=== PATIENT | female | born 1930 | race Caucasian/White ===

== ENCOUNTER 2017-03-23 10:57 | Inpatient (IN) | payer MEDICARE, OTHER ==
[~2017-03-23 10:57] MED LIST: ARICEPT10 MG PO; ASPIR 8181 MG PO; CALCIUM 600 +1 EAC3 PO; CERTAGEN1 EACH PO; CLARITIN PO; COLESTID 1GM TAB1 GM PO; COMBIVENT RESPIM4 GM PO; COREG 3.125M3.125 MG PO; COUMADIN 5MG TAB5 MG PO; DUONEB 2.5-0.5M1 AMP PO; ISOSORBIDE MONO30 MG PO; K-DUR20 MEQ PO; LASIX80 MG PO; LOVENOX80 MG/0.8 SQ; MELATONIN3 MG PO; METOLAZONE; NAMENDA XR14 MG PO; ROBITUSSIN DM10 ML PO; STOOL SOFTENER250 MG PO; TRAMADOL HCL50 MG PO; TYLENOL325 M1 PO; VENTOLIN (2.5 MG/3 M PO; VITAMIN B12; ZANTAC150 MG PO
[2017-03-23 13:49] LABS: BASOPHIL 0.3 % (0-2); EOSINOPHIL 0.2 % (0-7); HGB 11.1 g/dl (12.5-16.0); LYMPHOCYTE 6.2 % (15-48); MCH 33.5 pg (25.0-31.0); MCHC 31.7 g/dL (32.0-36.0); MCV 105.7 fL (78.0-100.0); MONOCYTE 7.5 % (0-12); MPV 11.7 fL (6.0-9.5); NEUTROPHIL 85.8 % (41-80); PLT 218 K/uL (150-400); RBC 3.31 M/uL (4.20-5.40); RDW 13.5 % (11.5-14.0); WBC 11.1 K/uL (4.0-10.5)
[2017-03-23 14:01] LABS: ALBUMIN 3.2 g/dL (3.4-4.8); BILIRUBIN - TOTAL 0.4 mg/dL (0.1-1.0); CREATININE 1.2 mg/dL (0.5-1.0); GLOBULIN (CALCULATION) 3.5 g/dL (2.2-4.2); POTASSIUM 3.9 mmol/L (3.5-5.1); TOTAL PROTEIN 6.7 g/dL (6.4-8.3)
[2017-03-23 14:02] LABS: TROPONIN T 0.016 ng/mL
[2017-03-23 15:23] LABS: BILIRUBIN NEGATIVE (NEGATIVE); BLOOD NEGATIVE Ery/uL (NEGATIVE); CLARITY CLEAR (CLEAR); COLOR YELLOW (YELLOW); GLUCOSE (U) NORMAL (NORMAL); KETONE (U) NEGATIVE (NEGATIVE); LEUKOCYTES NEGATIVE Leu/uL (NEGATIVE); NITRITE NEGATIVE (NEGATIVE); PROTEIN NEGATIVE (NEGATIVE); UROBILINOGEN 0.2 mg/dL (0.2-1.0)
[2017-03-24 04:22] LABS: BASOPHIL 0.1 % (0-2); EOSINOPHIL 0.1 % (0-7); HCT 34.3 % (37.0-47.0); HGB 10.9 g/dl (12.5-16.0); LYMPHOCYTE 6.4 % (15-48); MCH 33.5 pg (25.0-31.0); MCHC 31.8 g/dL (32.0-36.0); MCV 105.5 fL (78.0-100.0); MONOCYTE 0.6 % (0-12); MPV 10.8 fL (6.0-9.5); NEUTROPHIL 92.8 % (41-80); PLT 221 K/uL (150-400); RBC 3.25 M/uL (4.20-5.40); RDW 13.4 % (11.5-14.0); WBC 10.5 K/uL (4.0-10.5)
[2017-03-24 04:45] LABS: CREATININE 1.2 mg/dL (0.5-1.0); MAGNESIUM 2.39 mg/dL (1.40-2.10); POTASSIUM 3.9 mmol/L (3.5-5.1)
[2017-03-25 04:13] LABS: HCT 32.1 % (37.0-47.0); HGB 10.1 g/dl (12.5-16.0); MCH 33.1 pg (25.0-31.0); MCHC 31.5 g/dL (32.0-36.0); MCV 105.2 fL (78.0-100.0); MPV 10.7 fL (6.0-9.5); RBC 3.05 M/uL (4.20-5.40); RDW 13.3 % (11.5-14.0)
[2017-03-25 04:38] LABS: CREATININE 1.3 mg/dL (0.5-1.0)
[2017-03-25] MEDS ORDERED: TYLENOL ARTHRI650 MG PO (10:35)
[2017-03-25] MEDS ORDERED: ACETAMINOPHEN500 M1 PO (10:36)
[2017-03-25] MEDS ORDERED: ALLOPURINOL300 MG PO (10:36)
[2017-03-25] MEDS ORDERED: GERI-HYDROLAC222 M1 TOP (10:37)
[2017-03-25] MEDS ORDERED: B12 FOLATE (10:38)
[2017-03-25] MEDS ORDERED: CALMOSEPTINE OI71 GM TOP (10:39)
[2017-03-25] MEDS ORDERED: BENGAY GREASELE57 GM TOP (10:39)
[2017-03-25] MEDS ORDERED: NYSTATIN 30GM C30 GM TOP (10:40)
[2017-03-25] MEDS ORDERED: TEMOVATE 0.05%45 GM TOP (10:40)
[2017-03-25] MEDS ORDERED: SLOW RELEASE47.5 MG PO (10:41)
[2017-03-25] MEDS ORDERED: VITAMIN B-121000 MC1 PO (10:41)
[2017-03-25] MEDS ORDERED: MAGNESIUM OXID420 MG PO (10:42)
[2017-03-25] MEDS ORDERED: CLARITIN10 MG PO (10:42)
[2017-03-25] MEDS ORDERED: ZAROXOLYN2.5 MG PO (10:43)
[2017-03-25] MEDS ORDERED: VIBRAMYCIN100 MG PO (10:43)
[2017-03-25] MEDS ORDERED: MELATONIN3 MG PO (10:43)
[2017-03-25] MEDS ORDERED: LEVAQUIN750 MG PO (10:44)
--- NOTE | 2017-03-25 11:57 | NUR ---
REPORT CALLED TO DMITRIY RIVERA AT [facility], EMS CALLED TO TRANSPORT PT BACK TO [facility]
--- NOTE | 2017-03-25 12:45 | NUR ---
pt transported back to [facility] at this time
== END 2017-03-25 12:45 | DRG 291 ==
LOC: FER 10:57 → FTCU 15:10 → FICU 15:10
PROVIDERS: Emergency Medicine; Internal Medicine; ADMIT Internal Medicine
DX: I50.33 Acute on chronic diastolic (congestive) heart failure (principal); J18.9 Pneumonia, unspecified organism; J96.21 Acute and chronic respiratory failure with hypoxia; J96.22 Acute and chronic respiratory failure with hypercapnia; N39.0 Urinary tract infection, site not specified; J44.0 Chronic obstructive pulmonary disease with (acute) lower respiratory infection; J44.1 Chronic obstructive pulmonary disease with (acute) exacerbation; J44.9 Chronic obstructive pulmonary disease, unspecified; F03.90 Unspecified dementia, unspecified severity, without behavioral disturbance, psychotic disturbance, mood disturbance, and anxiety; M19.90 Unspecified osteoarthritis, unspecified site; G89.29 Other chronic pain; M54.9 Dorsalgia, unspecified; Z96.653 Presence of artificial knee joint, bilateral; Z88.5 Allergy status to narcotic agent; Z88.0 Allergy status to penicillin; Z88.1 Allergy status to other antibiotic agents; Z88.8 Allergy status to other drugs, medicaments and biological substances; Z66 Do not resuscitate
CPT/HCPCS: 36415; 36600; 71010; 80048; 80053; 81003; 82803; 83605; 83735; 83880; 84484; 85025; 87040; 87804; 87899; 92526; 93005; 94640; 94667; 94668; G0378; J1940; J1956; J2930